=== PATIENT | male | born 1935 | race Caucasian/White ===

== ENCOUNTER 2021-08-10 10:04 | Day surgery (SDC) | payer MEDICARE, BC ==
[2021-08-09 15:07] VITALS: BMI 29.2
[2021-08-10] MEDS ORDERED: Fentanyl 100 MCG/2 ML VIAL ONE (10:40)
[2021-08-10 11:19] LABS: Hemoglobin 16.2 g/dL (14.0-18.0); Mean Corpuscular HGB CONC 33.9 g/dL (32.0-36.0); Mean Corpuscular Hemoglobin 32.6 pg (27.0-31.0); Mean Corpuscular Volume 96.2 fL (78.0-98.0); Platelet Count 147 thou/uL (130-400); RBC Distribution Width 12.8 % (11.5-14.5); Red Blood Cell (RBC) Count 4.97 mill/uL (4.70-6.10); White Blood Cell (WBC) Count 7.5 thou/uL (4.8-10.8)
[2021-08-10 11:33] LABS: Anion Gap 14 mmol/L (10-20); BUN (Urea Nitrogen) 14 mg/dL (8.4-25.7); Calc. Creatinine Clearance 68 mL/min (70-130); Calcium 9.2 mg/dL (7.8-10.44); Carbon Dioxide 22 mmol/L (23-31); Chloride 105 mmol/L (98-107); Glucose 108 mg/dL (83-110); Potassium 4.3 mmol/L (3.5-5.1); Sodium 137 mmol/L (136-145)
[2021-08-10] MEDS ORDERED: Bupivacaine 0.25% HCL 30 ML VIAL ONE (11:45)
[2021-08-10] MEDS ORDERED: EPINEPHrine 1 MG/ML AMP ONE (11:45)
[2021-08-10] MEDS ORDERED: PROPOFOL 200 MG/20 ML VIAL ONE (12:35)
[2021-08-10] MEDS ORDERED: ePHEDrine 50 MG/ML VIAL ONE (12:35)
[2021-08-10] MEDS ORDERED: Dexamethasone 20 MG/5 ML VIAL ONE (12:35)
[2021-08-10] MEDS ORDERED: PHENYLEPHRINE-NS 100 MCG/ML 10 ML SYRINGE ONE (12:35)
[2021-08-10] MEDS ORDERED: Lidocaine 1% PF 5 ML VIAL ONE (12:35)
[2021-08-10] MEDS ORDERED: Ondansetron PF 4 MG/2 ML Vial ONE (12:35)
[2021-08-10] MEDS ORDERED: Phenylephrine 10 MG/ML VIAL ONE (13:12)
== END 2021-08-10 17:20 ==
LOC: SDC 10:04
PROVIDERS: ATTEND Plastic Surgery
PROC: 0HREX74 Replacement of Left Lower Arm Skin with Autologous Tissue Substitute, Partial Thickness, External Approach (ICD-10-PCS; principal; 2021-08-10)
DX: C44.629 Squamous cell carcinoma of skin of left upper limb, including shoulder (principal); Z79.01 Long term (current) use of anticoagulants; Z79.899 Other long term (current) drug therapy; Z91.030 Bee allergy status; Z95.1 Presence of aortocoronary bypass graft
CPT/HCPCS: 36415; 80048; 85027; 88305; 88331; 88332; 93005; 93010; J0171; J2370; J3010; S0020

== ENCOUNTER 2021-08-21 06:15 | Day surgery (SDC) | payer MEDICARE, BC ==
[2021-08-15 13:12] VITALS: BMI 29.2
[2021-08-21] MEDS ORDERED: EPINEPHrine 1 MG/ML AMP ONE ×2 (16:33→16:36)
[2021-08-21] MEDS ORDERED: Mineral Oil Sterile 10 ML VIAL ONE (16:33)
[2021-08-21] MEDS ORDERED: Lidocaine 1% w/Epinephrine 1:100K 20 ML VIAL ONE (16:33)
[2021-08-21] MEDS ORDERED: Bupivacaine 0.25% HCL 30 ML VIAL ONE (16:36)
[2021-08-21] MEDS ORDERED: Fentanyl 100 MCG/2 ML VIAL ONE (17:03)
[2021-08-21] MEDS ORDERED: Bacitracin Zinc Ointment 30 gm TUBE ONE (17:04)
[2021-08-21] MEDS ORDERED: Lidocaine 1% PF 5 ML VIAL ONE (17:19)
[2021-08-21] MEDS ORDERED: ePHEDrine 50 MG/ML VIAL ONE (17:19)
[2021-08-21] MEDS ORDERED: Dexamethasone 20 MG/5 ML VIAL ONE (17:19)
[2021-08-21] MEDS ORDERED: Ondansetron PF 4 MG/2 ML Vial ONE (17:19)
[2021-08-21] MEDS ORDERED: PROPOFOL 200 MG/20 ML VIAL ONE (17:19)
== END 2021-08-21 20:35 ==
LOC: SDC 06:15
PROVIDERS: ATTEND Plastic Surgery
PROC: 0HREX74 Replacement of Left Lower Arm Skin with Autologous Tissue Substitute, Partial Thickness, External Approach (ICD-10-PCS; principal; 2021-08-21)
DX: S51.802A Unspecified open wound of left forearm, initial encounter (principal); C44.629 Squamous cell carcinoma of skin of left upper limb, including shoulder; F03.90 Unspecified dementia, unspecified severity, without behavioral disturbance, psychotic disturbance, mood disturbance, and anxiety; I11.0 Hypertensive heart disease with heart failure; I50.9 Heart failure, unspecified; I25.2 Old myocardial infarction; Z79.01 Long term (current) use of anticoagulants; Z79.899 Other long term (current) drug therapy; Z91.030 Bee allergy status; Z95.1 Presence of aortocoronary bypass graft; X58.XXXA Exposure to other specified factors, initial encounter
CPT/HCPCS: J0171; J0690; J1100; J2405; J2704; J3010; J3490; S0020